=== PATIENT | male | born 1970 | race Caucasian/White ===

== ENCOUNTER 2020-12-19 06:25 | Day surgery (SDC) | payer OTHER ==
[~2020-12-19] VITALS: Ht 190.5 cm; Wt 150.0 kg
[2020-12-19] MEDS ORDERED: ADVIL200 M1 PO (06:44)
--- NOTE | 2020-12-19 09:07 | NUR ---
12/19/20 0907 Angeline Gray 0851-PATIENT ARRIVED TO PACU ON 6L MASK ORAL AIRWAY IN PLACE. RN HOLDING JAW TO MAINTAIN OPEN AIRWAY. PATIENT NONAROUSABLE NOT FOLLOWING COMMANDS BUT IS MOVING LEGS AND ARMS. RN AT BEDSIDE. IVF INFUSING. DRESSING TO RIGHT NECK CDI MARVIN DRAIN IN PLACE SANGUINOUS DRAINAGE. 0854-PATIENT SLOWLY AROUSING ORAL AIRWAY REMOVED. PATIENT MAINTAINING OWN AIRWAY. NOT FOLLOWING COMMANDS. 0900-PATIENT MOVING LEGS IN BED EYES OPEN FOLLOWING COMMANDS EYES OPEN DENIES PAIN OR NAUSEA. 0903-PATIENT AWAKE DENIES PAIN OR NAUSEA. PLACED ON RA. RR EVEN ENCOURAGED DEEP BREATHES. REPORTS "HAS RESTLESS LEGS" PATIENT DROWSY ASKING QUESTIONS ABOUT PROCEDURE.
--- NOTE | 2020-12-19 09:30 | NUR ---
PT ARRIVES TO DS RM 4 FROM PACU DROWSY. PT AROUSES WITH VERBAL STIMULATION, ANSWERS COMMANDS APPROPRIATELY. PT DENIES ANY PAIN IN SURGICAL SITE, PT EDUCATED ABOUT MARVIN DRAIN IN PLACE. PT TOLERATES WATER WITH NO COMPLAINTS OF NAUSEA. CALL LIGHT WITHIN REACH, DC CRITERIA EXPLAINED TO PT. PT DENIES ANYTHING TO EAT AT THIS TIME.
[2020-12-19] MEDS ORDERED: OXYCODONE HCL20 M1 PO (09:50)
--- NOTE | 2020-12-19 10:56 | NUR ---
[id number]: PT USES CALL LIGHT TO NOTIFY DS STAFF OF URGE TO VOID. SOCKS WITH NON-SLIP BOTTOMS DONNED AND SCD'S REMOVED. MARVIN DRAIN SAFETY PINNED TO PT GOWN AND IV SALINE LOCKED. RN ASSIST TO BATHROOM, PT HAS STEADY GAIT DENIES ANY DIZZINESS OR NAUSEA. PT ABLE TO VOID APPROX 300 MLS DARK YELLOW URINE WITH NO PROBLEMS. PT BACK TO DS RM 4 AND PROVIDED PUDDING AND FILIPE CRACKERS, WATER REFILLED. [id number]: PT DRESSES SELF, THIS RN NOTIFIED PT SPOUSE FOR SAFE RIDE HOME. DC INSTRUCTIONS GIVEN TO PT. PAIN PRESCRIPTION PROVIDED IN DC PACKET AND PT INSTRUCTED TO DROP OFF AT PREFERRED PHARMACY. MARVIN DRAIN EDUCATION AND DEMONSTRATION PROVIDED, PT ENCOURAGED TO USE PROVIDED FLOW CHART AT HOME. 1045: PT DC VIA WC TO SPOUSE WAITING AT MAIN HOSPITAL ENTRANCE TO HOME.
--- NOTE | 2020-12-20 07:57 | OR ---
[facility] [address], [place] [address] Signed DATE OF OPERATION: 12/19/2020 SURGEON: Malika Troy MD PREOPERATIVE DIAGNOSIS: Posterior subcutaneous cervical mass (6 x 10 cm). POSTOPERATIVE DIAGNOSIS: Posterior subcutaneous cervical mass (6 x 10 cm). PROCEDURE: 1. Excision of posterior subcutaneous cervical mass. 2. Placement of a subcutaneous drain. ESTIMATED BLOOD LOSS: None. INDICATIONS: Cinthya is a 50-year-old gentleman with a body mass index of 40. He presented to the office with a large mass in the posterior cervical area. right of the midline. He thinks it has been there maybe 30 years. He said it was quite small when it started off. He told me it was the size of a grapefruit in the office. 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 He said he is getting headaches as well. To his knowledge, it has never been infected. He wanted to have it removed. We had measured out the lesion here in the OR and it was 6 x 10 cm, but if you include the overlying skin of course it was quite a bit larger. I had explained to him the nature of the surgery. We are going to use a transverse incision to help hide that underneath the skin and allow him to extend and rotate his head. I also explained to Ashutosh that given the size of this lesion, we would probably need a subcutaneous drain to control the seroma at least for a week or two after the surgery. He understands there is risk to that surgery including, but not limited to bleeding, infection, scarring, change in contour of the skin as well as recurrent lesions in the same or other locations. He had expressed understanding and wished to proceed. DESCRIPTION OF PROCEDURE: I met with Ashutosh in our preop area. We both identified the lesion quite readily and marked it appropriately. After this, he was taken in the operating room and placed in the left lateral decubitus position under general LMA anesthesia. Appropriate padding and monitoring were placed. He was given preoperative antibiotics along with Electronically Signed By: MALIKA TROY MD 12/20/20 0757 PATIENT NAME: CINTHYA MOSES OPERATIVE REPORT DATE OF : 66 REPORT #: [id number] PHYSICIAN: MALIKA TROY MD PCP: KRYSTAL LOPEZ PA-C REPORT IS CONFIDENTIAL AND NOT TO BE RELEASED WITHOUT AUTHORIZATION [facility] [address], [place] [address] Signed subcutaneous heparin. SCDs were utilized. He was then prepped and draped in the usual sterile fashion. We made a standard transverse incision over the lesion, carried that down around the lesion with the help of the cautery. 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 As always, they travel from the skin all the way down to the muscle. It was quite deep and occupied the space underneath the occipital bone all the way down to the muscle. It was quite tenacious and took some time to remove. We eventually had a 2nd nurse scrub and to help with retraction. Eventually, the whole lesion was removed en bloc. There was an area inferiorly on his upper back that we thought might represent a little bit of lipoma and we took that as well and to make a nice transition point onto his upper back. The wound was then irrigated and suctioned out until clear. We injected local anesthetic into the wound. A #7 flat Jorge drain was brought out on the right aspect of his neck through the skin and held in place with a 2-0 nylon suture. We then closed the dermis with interrupted 3-0 subcuticular Monocryl sutures. The skin edges were reapproximated with a running 5-0 fast absorbing plain gut suture. Dry gauze and tape were then applied. Ashutosh was rotated into the supine position onto his hospital bed, weaned from his anesthesia, extubated in the OR, and taken to recovery room in stable condition. Malika Troy MD ALB/MODL /[id number] cc: MD Krystal Acuna Copies: MALIKA TROY MD ~ Electronically Signed By: MALIKA TROY MD 12/20/20 0757 PATIENT NAME: CINTHYA MOSES OPERATIVE REPORT DATE OF : 66 REPORT #: [id number] PHYSICIAN: MALIKA TROY MD PCP: KRYSTAL LOPEZ PA-C REPORT IS CONFIDENTIAL AND NOT TO BE RELEASED WITHOUT AUTHORIZATION
--- NOTE | 2020-12-24 16:17 | PATH ---
[facility] [address] [place] [address], [place] [address] Signed SPECIMEN(S): A POSTERIOR SUBCUTANEOUS CERVICAL MASS SPECIMEN SOURCE: A. POSTERIOR SUBCUTANEOUS CERVICAL MASS CLINICAL HISTORY: Excise posterior cervical mass. FINAL PATHOLOGIC DIAGNOSIS: Soft tissue, posterior cervical subcutaneous mass, excision: - Lobules of mature fibroadipose tissue, compatible with lipoma. NAL:cml:C2NR MICROSCOPIC EXAMINATION: Histologic sections of all submitted blocks are examined by light microscopy. These findings, together with the gross examination, support the pathologic diagnosis. GROSS DESCRIPTION: The specimen, labeled "JM," and designated on the requisition "posterior subcutaneous cervical mass," is received in formalin and consists of two portions of brown-mishra to yellow-mishra fatty tissue (7.5 x 6.0 x 3.5 cm and 3.4 x 3.4 x 1.4 cm). The larger portion of tissue is inked blue and the smaller portion is inked black. The tissue is serially sectioned to reveal a yellow-mishra, homogenous cut surface. Rotary Drill Operator Helper sections are submitted in cassettes (A1-A5). AC (under the direct supervision of a pathologist) The Gross Description was prepared using a voice recognition system. The report was reviewed for accuracy; however, sound-alike word errors, addition and/or deletions may occur. If there is any question about this report, please contact Client Services. PERFORMING LABORATORY: The technical component was performed by [employer], [address] [place] [id number] (Manager Wound Care: Anamika Matias MD; CLIA# [id number]). [facility] [address] [address] (CLIA# [id number]). Diagnostician: Nidhi Nielsen MD Pathologist PATIENT NAME: CINTHYA MOSES PATHOLOGY DATE OF : 66 REPORT #: [id number] PHYSICIAN: BEN MAYNARD PCP: KRYSTAL LOPEZ PA-C REPORT IS CONFIDENTIAL AND NOT TO BE RELEASED WITHOUT AUTHORIZATION [address] [address] Signed Electronically Signed 12/24/2020 Copies: ~ PATIENT NAME: CINTHYA MOSES PATHOLOGY DATE OF : 66 REPORT #: [id number] PHYSICIAN: BEN MAYNARD PCP: KRYSTAL LOPEZ PA-C REPORT IS CONFIDENTIAL AND NOT TO BE RELEASED WITHOUT AUTHORIZATION
== END 2020-12-19 10:45 | disposition home or self-care (01) ==
LOC: DS 06:25
PROVIDERS: ATTEND Colon & Rectal Surgery
PROC: 0JB40ZZ Excision of Right Neck Subcutaneous Tissue and Fascia, Open Approach (ICD-10-PCS; principal; 2020-12-19 06:45)
DX: R22.1 Localized swelling, mass and lump, neck (principal); Z87.891 Personal history of nicotine dependence
CPT/HCPCS: 00300; J0690; J1100; J1644; J1885; J2001; J2250; J2405; J2704; J7121